=== PATIENT | male | born 1990 | race Caucasian/White ===

== ENCOUNTER 2017-12-27 11:01 | Emergency (ER) | payer OTHER ==
[2017-12-27] MEDS ORDERED: NS 0.9% 1000 ML* 1,000 ML IV ONE (11:23)
--- NOTE | 2017-12-27 11:29 | ED ---
Syncope/Near Syncope - HPI Summary HPI Summary: Pt is a 27 y/o male BIBA who presents to the ED s/p near-syncopal episode. He states he has had a cold for the past week with a cough, and has been fatigued and sleeping more than usual. Today he had a near-syncopal episode, in which he felt dizzy, fatigued, lethargic, and diaphoretic. He denies any LOC. Pt was minimally responsive to EMS initially. He also c/o mild left upper back pain, and was given a muscle relaxant and pain medications from [facility] a few days ago. Pt states he hasnt taken these medications since 2 days ago. He c/o extreme fatigue while in the room. Pt is a smoker, but denies any drug or alcohol use. - History Of Current Complaint Chief Complaint: EDWeakness Time Seen by Provider: 12/27/17 11:14 Hx Obtained From: Patient, EMS Onset/Duration: Gradual Onset, Lasting Days - ~1 week, worse today, Worse Since Activity At Onset: Unknown Associated Head Trauma: No Aggravating Factor(s): Nothing Alleviating Factor(s): Nothing Associated Signs And Symptoms: Diaphoresis - Allergies/Home Medications Allergies/Adverse Reactions: Allergies Allergy/AdvReac Type Severity Reaction Status Date / Time No Known Allergies Allergy Verified 12/27/17 11:18 Home Medications: Home Medications Cyclobenzaprine TAB* [Flexeril 10 MG TAB*] 10 mg PO TID PRN 12/27/17 [History Confirmed 12/27/17] PMH/Surg Hx/FS Hx/Imm Hx Endocrine/Hematology History: Denies: Hx Diabetes Cardiovascular History: Denies: Hx Coronary Artery Disease - Immunization History Date of Tetanus Vaccine: unknown Immunizations Up to Date: Yes Infectious Disease History: No Infectious Disease History: Denies: Traveled Outside the [place] in Last 30 Days - Family History Known Family History: Negative: Cardiac Disease, Diabetes - Social History Alcohol Use: None Hx Substance Use: Yes Substance Use Type: Reports: Excessive Caffeine Substance Use Comment - Amount & Last Used: 4+ 16-20 oz cups of coffee per day Hx Tobacco Use: Yes Smoking Status (MU): Light Every Day Tobacco Smoker Review of Systems Positive: Fatigue, Skin Diaphoresis Positive: Cough Positive: Myalgia - Back pain Neurological: Other - Dizziness, lethargy Positive: Syncope - Near All Other Systems Reviewed And Are Negative: Yes Physical Exam - Summary Physical Exam Summary: Appearance: Well appearing, no pain distress Skin: warm, dry, reflects adequate perfusion Head/face: normal Eyes: EOMI, MALLIKA ENT: normal Neck: supple, non-tender Respiratory: CTA, breath sounds present Cardiovascular: RRR, pulses symmetrical Abdomen: non-tender, soft Bowel: present Musculoskeletal: normal, strength/ROM intact Neuro: normal, sensory motor intact, A&Ox3 Triage Information Reviewed: Yes Vital Signs On Initial Exam: Initial Vitals Temp Pulse Resp BP Pulse Ox 98.7 F 73 15 144/88 95 12/27/17 11:12 12/27/17 11:12 12/27/17 11:12 12/27/17 11:12 12/27/17 11:12 Vital Signs Reviewed: Yes Diagnostics - Vital Signs Vital Signs Temp Pulse Resp BP Pulse Ox 12/27/17 11:12 98.7 F 73 15 144/88 95 - Laboratory Result Diagrams: 12/27/17 11:48 12/27/17 11:48 Lab Statement: Any lab studies that have been ordered have been reviewed, and results considered in the medical decision making process. - Radiology CXR Xray Interpretation: No Acute Changes - NO EVIDENCE FOR ACTIVE CARDIOPULMONARY DISEASE. ED physician reviewed radiology report. Radiology Interpretation Completed By: Radiologist - EKG 11:55 Cardiac Rate: NL - 73 bpm EKG Rhythm: Sinus Rhythm EKG Interpretation: No acute changes Course/Dx Course Of Treatment: Pt is a 27 y/o male BIBA who presents to the ED s/p near- syncopal episode. He states he has had a cold for the past week with a cough, and has been fatigued and sleeping more than usual. Today he had a near- syncopal episode, in which he felt dizzy, fatigued, lethargic, and diaphoretic. He denies any LOC. Pt was minimally responsive to EMS initially. He also c/o mild left upper back pain, and was given a muscle relaxant and pain medications from [facility] a few days ago. A physical exam was normal. A CXR was negative. An EKG revealed a normal rate of 73 bpm and normal rhythm. Final dx are weakness and viral syndrome. Pt will be discharged home and is agreeable with this plan. - Diagnoses Provider Diagnoses: Weakness, Viral syndrome Discharge - Sign-Out/Discharge Documenting (check all that apply): Patient Departure - Discharge - Discharge Plan Condition: Stable Disposition: HOME Patient Education Materials: Tenofovir (By mouth), Weakness (ED) Referrals: [facility] [place], [place] [facility] REFERRAL [Outside] - 3 Days Additional Instructions: RETURN TO THE ED WITH ANY NEW OR WORSENING SYMPTOMS. - Billing Disposition and Condition Condition: STABLE Disposition: Home - Attestation Statements Document Initiated by Scribe: Yes Documenting Scribe: Francicsa Kendall Provider For Whom Marcella is Documenting (Include Credential): Sage Zuniga MD Scribe Attestation: Francisca Mckeon, scribed for Sage Zuniga MD on 12/27/17 at 1256. Scribe Documentation Reviewed: Yes Provider Attestation: The documentation as recorded by the Francisca clement accurately reflects the service I personally performed and the decisions made by Sage craig MD
[2017-12-27 12:02] LABS: ABS Basophils 0.1 10^3/ul (0-0.2); ABS Eosinophils 0.2 10^3/ul (0-0.6); ABS Lymphocytes 2.1 10^3/ul (1.0-4.8); ABS Monocytes 0.6 10^3/ul (0-0.8); ABS Neutrophils 5.7 10^3/ul (1.5-7.7); ABS Nucleated RBC 0 10^3/ul; Eosinophil % 2.2 % (0-6); Hematocrit 46 % (42-52); Hemoglobin 15.6 g/dl (14.0-18.0); Lymphocyte % 24.1 % (25-47); Mean Corpuscular HGB Conc 34 g/dl (31-36); Mean Corpuscular Hemoglobin 28 pg (27-31); Mean Corpuscular Volume 83 fL (80-94); Mean Platelet Volume 9.2 um3 (7.4-10.4); Nucleated Red Blood Cells % 0.3; Platelet Count 232 10^3/ul (150-450); Red Blood Count 5.58 10^6/ul (4.00-5.40); Red Cell Distribution Width 15 % (10.5-15); White Blood Count 8.6 10^3/ul (3.5-10.8)
[2017-12-27 12:07] LABS: INR 0.99 (0.77-1.02)
[2017-12-27 12:17] LABS: EGFR Non-African American 109.5 (>60)
--- NOTE | 2017-12-27 12:20 | RAD ---
INDICATION: Weakness. COMPARISON: There are no relevant prior studies available for comparison. TECHNIQUE: Dual-energy PA and lateral views of the chest were obtained. FINDINGS: The heart is within normal limits in size. Mediastinal and hilar contours appear within normal limits. The lungs are clear. No pleural effusion is present. IMPRESSION: NO EVIDENCE FOR ACTIVE CARDIOPULMONARY DISEASE.
[2017-12-27 13:07] VITALS: BP 142/81
== END 2017-12-27 13:07 | disposition home or self-care (01) ==
LOC: ED 11:01
DX: R53.1 Weakness (principal); B34.9 Viral infection, unspecified; M54.9 Dorsalgia, unspecified; F17.200 Nicotine dependence, unspecified, uncomplicated
CPT/HCPCS: 36415; 71046; 80053; 83605; 83735; 84484; 85025; 85610; 85730; 93005; 96360; 99283